=== PATIENT | female | born 1950 | race Caucasian/White ===

== ENCOUNTER 2021-12-06 15:39 | Emergency (ER) | payer MEDICARE, SELFPAY ==
--- NOTE | ~2021-12-06 | CT_ITS ---
EXAMINATION: CT ANGIOGRAM OF THE CHEST WITH CONTRAST (CT PULMONARY ANGIOGRAM FOR PE) CT ABDOMEN/PELVIS WITH CONTRAST CLINICAL INFORMATION: Reason for Exam syncope. REcent surgery. PE? Syncope. Vomiting. COMPARISON: None TECHNIQUE: Prior to contrast administration, noncontrast localization images were obtained. Subsequently, multidetector volumetric imaging was performed from the thoracic inlet through the pubic symphysis following the administration of 80 mL Omnipaque 350 intravenous contrast. Postcontrast images of the chest were acquired during the pulmonary angiographic phase, while imaging through the abdomen and pelvis was performed during the portal venous phase. No contrast reaction reported Sagittal, coronal, and MIP oblique sagittal reformatted images were obtained on the CT workstation, uploaded to PACS, and reviewed. This CT examination was performed using dose optimization techniques as appropriate, variously including the following: *Automated exposure control *Adjustment of mA and/or kV according to patient size (this includes techniques or standardized protocols for targeted exams where dose is matched to indication/reason for exam; i.e. extremities or head) *Use of iterative reconstruction technique Total exam dose-length product 825 mGy-cm FINDINGS: QUALITY OF STUDY/CONTRAST BOLUS: Satisfactory. PULMONARY ARTERIES: No central or segmental pulmonary emboli. THORACIC AORTA: No aneurysm or dissection. LUNG: No focal consolidation, nodules or masses. Mild emphysema. Diffuse mild bronchial thickening without bronchiectasis. PLEURA: No pleural effusion or pneumothorax. MEDIASTINUM: Mild cardiomegaly. No pericardial effusion. No hilar or mediastinal lymphadenopathy. No evidence of septal bowing or right heart strain. CHEST WALL/AXILLA: No axillary or internal mammary lymphadenopathy. HEPATOBILIARY: Liver normal in size, contour and morphology. No suspicious lesions. No intra or extrahepatic biliary dilation. Gallbladder unremarkable. PANCREAS: Unremarkable. SPLEEN: Unremarkable. ADRENAL GLANDS: Subcentimeter nodule in the left adrenal genu is of doubtful clinical significance. Right adrenal gland is normal. morphology demonstrating symmetric enhancement. No suspicious renal cysts or masses. No hydronephrosis or perinephric abnormality.. GASTROINTESTINAL TRACT: No bowel related abnormalities. PELVIC VISCERA: Unremarkable. LYMPH NODES: No lymphadenopathy. PERITONEUM/BODY WALL: Unremarkable. VASCULAR STRUCTURES: Aorta is atherosclerotic. No aneurysm. Patent vascular structures. OSSEOUS STRUCTURES: No acute or suspicious osseous abnormalities. CT/CT angio chest PE protocol IMPRESSION: * No pulmonary embolism. * Mild emphysema and chronic airways disease. * No acute findings within the abdomen or pelvis. VTE: negative
--- NOTE | ~2021-12-06 | CT_ITS ---
EXAMINATION: CT HEAD WITHOUT CONTRAST CLINICAL INFORMATION: Syncope COMPARISON: None TECHNIQUE: Contiguous axial imaging was performed from the skull base to vertex without intravenous administration of contrast. This CT examination was performed using dose optimization techniques as appropriate, variously including the following: *Automated exposure control *Adjustment of mA and/or kV according to patient size (this includes techniques or standardized protocols for targeted exams where dose is matched to indication/reason for exam; i.e. extremities or head) *Use of iterative reconstruction technique DLP: 626 mGy-cm FINDINGS: There is no evidence of acute intracranial hemorrhage or territorial infarction. No abnormal mass effect or midline shift is seen. Le to white matter differentiation is well preserved. No extra-axial fluid collections are identified. The ventricles are normal in size. There is no abnormal attenuation within the brain parenchyma. The osseous structures and soft tissues are normal. The mastoid air cells and visualized portions of the paranasal sinuses are well aerated. CT/CT head/brain wo con IMPRESSION: No acute intracranial pathology.
[2021-12-06 16:05] VITALS: BP 110/70; PULSE 92; O2SAT 97
[2021-12-06 16:07] VITALS: BP 113/57; PULSE 77; RESP 16; TEMP 36.9; O2SAT 96; BMI 29.6
--- NOTE | 2021-12-06 16:32 | ED.GENADULT ---
HPI - General Adult General Chief complaint: Syncope Stated complaint: syncope Time Seen by Provider: 12/06/21 16:14 Source: patient Mode of arrival: ambulatory Limitations: no limitations History of Present Illness HPI narrative: 71 yold female with pmh of HTN, smoker, cataracts presents to the ED for syncope while out having dinner at the restaurant today. Patient states she starting sweating and did not feel good and than passed out. Son states he caught her before she fell to the ground. Patient also vomittning after syncopal episode. patient's son states patient than had another syncopal episode while wating for the EMS. There was no shaking. patient state last she had cataracts surgery under minor general anesthesia that lasted 5 minutes Related Data Allergies Allergy/AdvReac Type Severity Reaction Status Date / Time No Known Allergies Allergy Verified 12/06/21 16:15 Review of Systems Review of Systems: syncope Yes all other systems are reviewed and are negative PMFSH Social History Social History Advance Directives: No Advance Directives Information Provided: No Physical Exam ED Vital Signs: Vital Signs - 24 hr 12/06/21 16:07 12/06/21 20:16 12/06/21 20:21 Temperature 98.4 F 97.9 F Pulse Rate 77 86 87 Respiratory Rate 16 16 Blood Pressure 113/57 L 148/75 H 141/64 H Pulse Oximetry 96 98 Oxygen Delivery Method Room Air Room Air 12/06/21 20:17 12/06/21 20:19 Temperature Pulse Rate 87 87 Respiratory Rate Blood Pressure 141/64 H 159/74 H Pulse Oximetry Oxygen Delivery Method BMI result Body Mass Index 29.6 Const General: cooperative, healthy appearing, comfortable, no acute distress, well developed, alert, awake and Physically active [facility] Head: Yes normal to inspection, Yes No palpable skull fracture present, Yes normocephalic, Yes atraumatic and No abrasion Eyes General: appearance normal, both eyes and all related structures Neck Neck: Yes normal visual inspection, Yes full ROM, Yes no lymphadenopathy, Yes no meningeal signs, Yes trachea midline, Yes supple, No anterior neck swelling and No tender Chest Chest palpation & inspection: normal inspection of the chest and normal palpation of entire chest wall Resp Effort & Inspection: normal respiratory effort and able to speak in complete sentences Auscultation: clear to auscultation bilaterally Cardio Jugular venous distension: no JVD Heart sounds: S1 normal heart sound present and S2 normal heart sound present GI Inspection: Yes normal to inspection and No abdominal wall ecchymosis Palpation (GI): Soft to palpation, not firm, nontender and no guarding General: No CVA tenderness and Yes no CVA tenderness Back/Spine/Pelvis Back: no CVA tenderness, No CVA tenderness and No back tenderness Skin General skin exam: no rashes or lesions noted and elasticity normal Neuro Other: A0x3 negative facial droop. negative slurred speech. negative pronator drift. all extremities equal strengh 5+. FInger to nose and rapid hand movement intact. General: no meningeal signs Extrem General: Yes normal to inspection and Yes full ROM Psych Appearance: grossly normal, well kempt and not disheveled NIH Stroke Scale Internal: Initial- Upon Arrival Level of Consciousness: Alert Level of Consciousness Questions: Answers both questions correctly Level of Consciousness Commands: Performs both tasks correctly Best Gaze: Normal Visual: No visual loss Facial Palsy: Normal Motor Arm (Right): No drift Motor Arm (Left): No drift Motor Leg (Right): No drift Motor Leg (Left): No drift Limb Ataxia: Absent Sensory: Normal Best Language: No aphasia Dysarthia: Normal Extinction and Inattention: No abnormality Score: 0 Course Course Course Narrative: Due to age will do cardiac evaluation, PE workup, and look brain and abdominal ettiology due to syncope and vomitting. Presently no neuro deficits. Admission was brought to patient but she refused. Will bring admission again after results Reevaluation(s) Reevaluation #1: EKG negative STEMI. Orthostatics negative. two troponins were negative. Head CT normal. Chest CT negative for PE. Abdomen CT scan came back normal. Patient was instructed due to her age and 2 episodes of syncope she should be admitted for observation for possible carotid ultrasound, ultrasound the heart, or even Holter monitoring recommendation the patient does not want to stay. Patient will call her doctor tomorrow. Patient understand risk of leaving his AMA that include heart attack and . Patient signed out AMA. Time: 21:30 Medical Decision Making MDM Narrative Medical decision making narrative: Syncope. AMA Lab Data Result diagrams: 12/06/21 17:12/06/21 20:49 Labs: Lab Results 12/06/21 12/06/21 12/06/21 Range/Units 17:01 17:01 17:01 WBC 12.3 H (4.8-10.8) X10*3/uL RBC 4.04 L (4.20-5.50) X10*6/uL Hgb 12.8 (12.0-16.0) g/dl Hct 39.3 (37.0-47.0) % MCV 97.3 (80.0-98.0) fL MCH 31.7 (27.0-33.0) pg MCHC 32.6 (31.0-35.0) g/dl RDW 12.3 (11.0-16.0) % Plt Count 301 (160-400) X10*3/uL MPV 9.3 L (9.4-12.3) fL Immature Gran % (Auto) 0.6 H (0.0-0.4) % Neut % (Auto) 68.4 (45-73) % Lymph % (Auto) 21.8 (20-40) % Hendry % (Auto) 6.3 (2-11) % Eos % (Auto) 2.5 (0-4) % Baso % (Auto) 0.4 (0-2) % Lymph # (Auto) 2.7 (1.2-4.9) X10*3/uL Hendry # (Auto) 0.8 (0.1-1.2) X10*3/uL Eos # (Auto) 0.3 (0.0-0.4) X10*3/uL Baso # (Auto) 0.1 (0.0-0.2) X10*3/uL Abs Immat Gran (auto) 0.07 H (0.00-0.03) X10*3/uL Absolute Neuts (auto) 8.4 H (2.0-8.3) x10*3/uL Absolute Nucleated RBC 0.000 (0.0-0.012) X10*3/uL Nucleated RBC % (auto) 0.0 (0.0-0.2) /100WBC PT (10.0-13.1) SEC INR (0.9-1.1) APTT (26.0-36.4) SEC Sodium 138 (135-145) mmol/L Potassium 4.1 (3.3-5.1) mmol/L Chloride 109 H (96-108) mmol/L Carbon Dioxide 17 L (22-29) mmol/L Anion Gap 16 (12-20) BUN 34 H (9-16) mg/dL Creatinine 1.41 H (0.5-1.4) mg/dL Estim Creat Clear Calc 34.3 Estimated GFR 37 Random Glucose 116 H (60-115) mg/dL Calcium 8.8 (8.4-10.2) mg/dL Total Bilirubin 0.3 (0.0-1.0) mg/dL AST 9 (5-31) U/L ALT 10 (0-31) U/L Alkaline Phosphatase 54 (39-117) U/L Troponin I High Sens < 3.5 (<3.5-17.0) ng/L B-Natriuretic Peptide 16 (<100) pg/mL Total Protein 7.0 (6.5-8.0) g/dL Albumin 4.2 (3.5-5.0) g/dL Lipase 47 (8-78) U/L Urine Color Urine Appearance Urine pH (5.0-8.0) Ur Specific [place] (1.005-1.025) Urine Protein (NEG-TRACE) MG/DL Urine Glucose (UA) (NEG) MG/DL Urine Ketones (NEG) MG/DL Urine Blood (NEG) Urine Nitrite (NEG) Ur Leukocyte Esterase (NEG) Urine RBC (0) /HPF Urine WBC (0-4) /HPF Ur Squamous Epith Cells /LPF Urine Bacteria /LPF Urine Mucus /LPF Ethyl Alcohol < 10 mg/dL COVID-19 (GEORGE) (Negative) COVID-19 Clin Com 12/06/21 12/06/21 12/06/21 Range/Units 17:01 17:01 17:01 WBC (4.8-10.8) X10*3/uL RBC (4.20-5.50) X10*6/uL Hgb (12.0-16.0) g/dl Hct (37.0-47.0) % MCV (80.0-98.0) fL MCH (27.0-33.0) pg MCHC (31.0-35.0) g/dl RDW (11.0-16.0) % Plt Count (160-400) X10*3/uL MPV (9.4-12.3) fL Immature Gran % (Auto) (0.0-0.4) % Neut % (Auto) (45-73) % Lymph % (Auto) (20-40) % Hendry % (Auto) (2-11) % Eos % (Auto) (0-4) % Baso % (Auto) (0-2) % Lymph # (Auto) (1.2-4.9) X10*3/uL Hendry # (Auto) (0.1-1.2) X10*3/uL Eos # (Auto) (0.0-0.4) X10*3/uL Baso # (Auto) (0.0-0.2) X10*3/uL Abs Immat Gran (auto) (0.00-0.03) X10*3/uL Absolute Neuts (auto) (2.0-8.3) x10*3/uL Absolute Nucleated RBC (0.0-0.012) X10*3/uL Nucleated RBC % (auto) (0.0-0.2) /100WBC PT 10.0 (10.0-13.1) SEC INR 0.9 (0.9-1.1) APTT 27.7 (26.0-36.4) SEC Sodium (135-145) mmol/L Potassium (3.3-5.1) mmol/L Chloride (96-108) mmol/L Carbon Dioxide (22-29) mmol/L Anion Gap (12-20) BUN (9-16) mg/dL Creatinine (0.5-1.4) mg/dL Estim Creat Clear Calc Estimated GFR Random Glucose (60-115) mg/dL Calcium (8.4-10.2) mg/dL Total Bilirubin (0.0-1.0) mg/dL AST (5-31) U/L ALT (0-31) U/L Alkaline Phosphatase (39-117) U/L Troponin I High Sens (<3.5-17.0) ng/L B-Natriuretic Peptide (<100) pg/mL Total Protein (6.5-8.0) g/dL Albumin (3.5-5.0) g/dL Lipase (8-78) U/L Urine Color YELLOW Urine Appearance HAZY Urine pH 7.0 (5.0-8.0) Ur Specific [place] <= 1.005 (1.005-1.025) Urine Protein NEG (NEG-TRACE) MG/DL Urine Glucose (UA) NEG (NEG) MG/DL Urine Ketones NEG (NEG) MG/DL Urine Blood NEG (NEG) Urine Nitrite NEG (NEG) Ur Leukocyte Esterase 2+ H (NEG) Urine RBC 0-2 (0) /HPF Urine WBC 1-4 (0-4) /HPF Ur Squamous Epith Cells TRACE /LPF Urine Bacteria TRACE /LPF Urine Mucus TRACE /LPF Ethyl Alcohol mg/dL COVID-19 ([facility]OR[facility]) Negative (Negative) COVID-19 Clin Com See Note 12/06/21 12/06/21 Range/Units 20:49 20:49 WBC (4.8-10.8) X10*3/uL RBC (4.20-5.50) X10*6/uL Hgb (12.0-16.0) g/dl Hct (37.0-47.0) % MCV (80.0-98.0) fL MCH (27.0-33.0) pg MCHC (31.0-35.0) g/dl RDW (11.0-16.0) % Plt Count (160-400) X10*3/uL MPV (9.4-12.3) fL Immature Gran % (Auto) (0.0-0.4) % Neut % (Auto) (45-73) % Lymph % (Auto) (20-40) % Hendry % (Auto) (2-11) % Eos % (Auto) (0-4) % Baso % (Auto) (0-2) % Lymph # (Auto) (1.2-4.9) X10*3/uL Hendry # (Auto) (0.1-1.2) X10*3/uL Eos # (Auto) (0.0-0.4) X10*3/uL Baso # (Auto) (0.0-0.2) X10*3/uL Abs Immat Gran (auto) (0.00-0.03) X10*3/uL Absolute Neuts (auto) (2.0-8.3) x10*3/uL Absolute Nucleated RBC (0.0-0.012) X10*3/uL Nucleated RBC % (auto) (0.0-0.2) /100WBC PT (10.0-13.1) SEC INR (0.9-1.1) APTT (26.0-36.4) SEC Sodium 138 (135-145) mmol/L Potassium 4.8 (3.3-5.1) mmol/L Chloride 111 H (96-108) mmol/L Carbon Dioxide 18 L (22-29) mmol/L Anion Gap 14 (12-20) BUN 33 H (9-16) mg/dL Creatinine 1.29 (0.5-1.4) mg/dL Estim Creat Clear Calc 37.5 Estimated GFR 41 Random Glucose 120 H (60-115) mg/dL Calcium 8.7 (8.4-10.2) mg/dL Total Bilirubin 0.2 (0.0-1.0) mg/dL AST 8 (5-31) U/L ALT 9 (0-31) U/L Alkaline Phosphatase 52 (39-117) U/L Troponin I High Sens 3.5 (<3.5-17.0) ng/L B-Natriuretic Peptide (<100) pg/mL Total Protein 6.4 L (6.5-8.0) g/dL Albumin 4.0 (3.5-5.0) g/dL Lipase (8-78) U/L Urine Color Urine Appearance Urine pH (5.0-8.0) Ur Specific [place] (1.005-1.025) Urine Protein (NEG-TRACE) MG/DL Urine Glucose (UA) (NEG) MG/DL Urine Ketones (NEG) MG/DL Urine Blood (NEG) Urine Nitrite (NEG) Ur Leukocyte Esterase (NEG) Urine RBC (0) /HPF Urine WBC (0-4) /HPF Ur Squamous Epith Cells /LPF Urine Bacteria /LPF Urine Mucus /LPF Ethyl Alcohol mg/dL COVID-19 (GEORGE) (Negative) COVID-19 Clin Com ECG Data Interpretation: Normal sinus rhythm. Ventricular rate 81. Peer interval 170. QRS 82. QTC 420. Negative STEMI Discharge Plan Discharge Clinical Impression: Syncope Patient Disposition: Left Against Medical Advice Instructions: Syncope (ED) Additional Instructions: You are leaving against medical advice. Return to the ED for nothing syncopal episode, chest pain, shortness of breath, headache, dizziness, vomiting blood, rectal bleeding, abdominal pain, slurred speech, facial droop, paralysis of extremities, or any other concerning symptoms. You were given copy of the images labs and EKG. Please follow-up with your derrick hand and primary care doctor tomorrow Referrals: Marquise Medrano MD [Primary Care Provider] - (Syncope.) Stand Alone Forms: Against Medical Advice Print Language: Ukrainian
[2021-12-06] MEDS: 0.9 % Sodium Chloride 1,000 ML 999 ML IV ×2 (16:56→19:32)
--- NOTE | 2021-12-06 17:01 | ECG_ITS ---
Test Reason : SYNCOPE Blood Pressure : / mmHG Vent. Rate : 081 BPM Atrial Rate : 081 BPM P-R Int : 170 ms QRS Dur : 082 ms QT Int : 362 ms P-R-T Axes : 042 046 032 degrees QTc Int : 420 ms Normal sinus rhythm Possible Left atrial enlargement T wave abnormality, consider anterior ischemia Abnormal ECG No previous ECGs available Referred By: Yuval Bergeron Electronically Signed By:GONSALO LAIRD
[2021-12-06 17:06] LABS: MANUAL DIFF FLAG NO
[2021-12-06 17:08] LABS: Basophils Absolute Auto 0.1 X10*3/uL (0.0-0.2); Basophils Percent Auto 0.4 % (0-2); Eosinophils Absolute Auto 0.3 X10*3/uL (0.0-0.4); Eosinophils Percent Auto 2.5 % (0-4); Hematocrit 39.3 % (37.0-47.0); Hemoglobin 12.8 g/dl (12.0-16.0); Imm Gran Abs Auto 0.07 X10*3/uL (0.00-0.03); Imm Gran Pct Auto 0.6 % (0.0-0.4); Lymphocytes Absolute Auto 2.7 X10*3/uL (1.2-4.9); Lymphocytes Percent Auto 21.8 % (20-40); Mean Corpuscular HGB Conc 32.6 g/dl (31.0-35.0); Mean Corpuscular Hemoglobin 31.7 pg (27.0-33.0); Mean Corpuscular Volume 97.3 fL (80.0-98.0); Mean Platelet Volume 9.3 fL (9.4-12.3); Monocytes Absolute Auto 0.8 X10*3/uL (0.1-1.2); Monocytes Percent Auto 6.3 % (2-11); Neutrophils Absolute Auto 8.4 x10*3/uL (2.0-8.3); Neutrophils Percent Auto 68.4 % (45-73); Platelet Count 301 X10*3/uL (160-400); Red Blood Count 4.04 X10*6/uL (4.20-5.50); Red Cell Distribution Width 12.3 % (11.0-16.0); White Blood Count 12.3 X10*3/uL (4.8-10.8)
[2021-12-06 17:11] LABS: Appearance Urine HAZY; Color Urine YELLOW; Glucose Urine UA NEG (NEG); Leukocyte Esterase Urine 2+ (NEG); Nitrite Urine NEG (NEG); Specific Gravity - Urine <= 1.005 (1.005-1.025); UACC Culture Trigger YES; Urine Blood NEG (NEG); Urine Ketones NEG (NEG); Urine Protein NEG (NEG-TRACE)
[2021-12-06 17:14] LABS: INTERNATIONAL NORM RATIO 0.9 (0.9-1.1)
[2021-12-06 17:17] LABS: Partial Thromboplastin Time 27.7 SEC (26.0-36.4)
[2021-12-06 17:21] LABS: Bacteria Urine TRACE /LPF; Mucus Urine TRACE /LPF; RBC Urine 0-2 /HPF (0); Squamous Epithelial Cell Urine TRACE /LPF
[2021-12-06 17:26] LABS: Alanine Aminotransferase 10 U/L (0-31); Albumin Level 4.2 g/dL (3.5-5.0); Alkaline Phosphatase 54 U/L (39-117); Anion Gap 16 (12-20); Aspartate Amino Transferase 9 U/L (5-31); Bilirubin Total 0.3 mg/dL (0.0-1.0); Blood Urea Nitrogen 34 mg/dL (9-16); Calcium 8.8 mg/dL (8.4-10.2); Carbon Dioxide 17 mmol/L (22-29); Chloride 109 mmol/L (96-108); Creatinine Clr Calc Pharmacy 34.3; Estimated Glomerular Filt Rate 37; Glucose Random 116 mg/dL (60-115); Lipase 47 U/L (8-78); Potassium 4.1 mmol/L (3.3-5.1); Sodium 138 mmol/L (135-145)
[2021-12-06 17:32] LABS: B Type Natriuretic Peptide 16 pg/mL (<100); Troponin-I High Sensitivity < 3.5 ng/L (<3.5-17.0)
[2021-12-06 17:35] LABS: COVID-19 Test Negative (Negative)
[2021-12-06] MEDS: iohexoL 350 MG/ML 100 ML INFUS..BTL IV (19:34)
[2021-12-06 20:16] VITALS: BP 148/75; PULSE 86
[2021-12-06 20:17] VITALS: BP 141/64; PULSE 87
[2021-12-06 20:19] VITALS: BP 159/74; PULSE 87
[2021-12-06 20:21] VITALS: BP 141/64; PULSE 87; RESP 16; TEMP 36.6; O2SAT 98
[2021-12-06 21:14] LABS: Alanine Aminotransferase 9 U/L (0-31); Alkaline Phosphatase 52 U/L (39-117); Anion Gap 14 (12-20); Aspartate Amino Transferase 8 U/L (5-31); Bilirubin Total 0.2 mg/dL (0.0-1.0); Blood Urea Nitrogen 33 mg/dL (9-16); Calcium 8.7 mg/dL (8.4-10.2); Carbon Dioxide 18 mmol/L (22-29); Chloride 111 mmol/L (96-108); Creatinine Clr Calc Pharmacy 37.5; Estimated Glomerular Filt Rate 41; Glucose Random 120 mg/dL (60-115); Potassium 4.8 mmol/L (3.3-5.1); Sodium 138 mmol/L (135-145); Total Protein 6.4 g/dL (6.5-8.0)
[2021-12-06 21:21] LABS: Troponin-I High Sensitivity 3.5 ng/L (<3.5-17.0)
--- NOTE | 2021-12-06 21:43 | PC.NURSE ---
Patient refused vitals ,rn aware .
[2021-12-06 21:50] LABS: Ethanol < 10 mg/dL
== END 2021-12-07 10:50 | disposition left against medical advice (07) ==
PROVIDERS: Physician Assistant; Emergency Provider Emergency Medicine Emergency Medical Services; PCP Internal Medicine
DX: R55 Syncope and collapse (principal); R06.02 Shortness of breath; R51.9 Headache, unspecified; R10.9 Unspecified abdominal pain; I10 Essential (primary) hypertension; F17.210 Nicotine dependence, cigarettes, uncomplicated; Z71.6 Tobacco abuse counseling; Z20.822 Contact with and (suspected) exposure to COVID-19; Z79.899 Other long term (current) drug therapy
CPT/HCPCS: 36415; 70450; 71275; 74177; 80053; 81001; 82077; 83690; 83880; 84484; 85025; 85610; 85730; 87086; 87635; 93005; 96365; 99284; Q9967